=== PATIENT | female | born 1995 | race African-American/Black ===

== ENCOUNTER 2017-03-23 12:15 | Emergency (ER) | payer OTHER ==
[~2017-03-23] VITALS: Ht 160 cm; Wt 54.5 kg
[~2017-03-23 12:15] MED LIST: BIRTH CONTROL PILLS
[2017-03-23 12:17] VITALS: BP 117/66; TEMP 99
[2017-03-23] MEDS ORDERED: CELEXA 20MG20 MG/TAB PO (12:20)
[2017-03-23] MEDS ORDERED: VIENVA-28 TABL1 EACH PO (12:20)
[2017-03-23] MEDS ORDERED: ADDERALL15 MG PO (12:20)
[2017-03-23 15:04] LABS: PH 6 (5-8); URINE APPEARANCE Clear; URINE BACTERIA Rare /hpf; URINE BILIRUBIN Negative (NEGATIVE); URINE BLOOD Negative (NEGATIVE); URINE COLOR Yellow; URINE GLUCOSE Negative (NEGATIVE); URINE KETONE Negative (NEGATIVE); URINE RBC 0-2 /hpf; URINE UROBILINOGEN Negative (NEGATIVE)
[2017-03-23 16:04] LABS: MEAN CELL VOLUME 85 fl (80.0-100.0); MEAN CORPUSCULAR HEMOGLOBIN 28 pg (27.0-31.0); MEAN CORPUSCULAR HGB CONC 33 g/dl (33.0-37.0); MEAN PLATELET VOLUME 10.3 fl (7.4-10.4); PLATELET COUNT 230 K/mm3 (130-400); REDCELL DISTRIBUTION WIDTH-CV 13.3 % (11.5-14.5)
[2017-03-23 16:09] LABS: ADD PATHOLOGY DIFF REVIEW NO; HEMATOCRIT 36.7 % (37.0-47.0)
[2017-03-23 16:23] LABS: ADJUSTED CALCIUM 8.9 mg/dL (8.4-10.2); ALANINE AMINOTRANSFERASE 19 U/L (9-52); ALKALINE PHOSPHATASE 50 U/L (50-136); ANION GAP 8 mmol/L (7-16); BILIRUBIN,TOTAL 0.5 mg/dL (0.0-1.0); BLOOD UREA NITROGEN 8 mg/dL (7-17); CALCIUM 8.9 mg/dL (8.4-10.2); CARBON DIOXIDE 24 mmol/L (22-30); CHLORIDE 105 mmol/L (98-107); CREATININE, serum 0.66 mg/dL (0.52-1.25); GLUCOSE 74 mg/dL (74-106); LIPASE 72 U/L (23-300); POTASSIUM 3.7 mmol/L (3.4-5.0); SODIUM 137 mmol/L (137-145); TOTAL PROTEIN 6.9 gm/dL (6.4-8.2)
[2017-03-23 16:26] LABS: C-REACTIVE PROTEIN < 0.5 mg/dL (0.0-0.9)
[2017-03-23 16:44] LABS: BAND 2 % (0-10); NEUTROPHILS 51 % (42.0-75.2); TOTAL CELLS COUNTED 100
[2017-03-23 16:46] LABS: PLATELET ESTIMATE NORMAL (NORMAL)
[2017-03-23 17:21] VITALS: PULSE 67
== END 2017-03-23 17:21 | disposition home or self-care (01) ==
LOC: COL.ER 12:15
PROVIDERS: Nurse Practitioner
DX: R10.84 Generalized abdominal pain (principal); R19.7 Diarrhea, unspecified; F41.9 Anxiety disorder, unspecified; F90.9 Attention-deficit hyperactivity disorder, unspecified type; F12.10 Cannabis abuse, uncomplicated
CPT/HCPCS: J1885; J7030

== ENCOUNTER → 2017-03-25 | Outpatient (CLI) | payer OTHER ==
[~2017-03-25] MED LIST changes: +ADDERALL15 MG PO; +CELEXA 20MG20 MG/TAB PO; +VIENVA-28 TABL1 EACH PO
== END ==
LOC: COL.LAB 14:55
DX: R19.7 Diarrhea, unspecified (principal)

== ENCOUNTER 2018-02-12 18:32 | Emergency (ER) | payer SELFPAY ==
[~2018-02-12] VITALS: Ht 160 cm; Wt 52.3 kg
[2018-02-12 18:36] VITALS: TEMP 98.7
[2018-02-12 19:36] LABS: COLLECTION METHOD CLEAN CATCH
[2018-02-12 19:39] LABS: BASO % 0.5 % (0.0-2.0); EOS # 0.1 (0.0-0.7); EOS % 0.6 % (0-4.0); GRAN # 4.1 (1.4-6.5); GRAN % 46.5 % (42.2-75.2); HEMATOCRIT 42.1 % (37.0-47.0); LYMPH # 4.1 (1.2-3.4); LYMPH % 45.7 % (20.0-51.0); MEAN CELL VOLUME 84 fl (80.0-100.0); MEAN CORPUSCULAR HEMOGLOBIN 28 pg (27.0-31.0); MEAN CORPUSCULAR HGB CONC 33 g/dl (33.0-37.0); MEAN PLATELET VOLUME 10.4 fl (7.4-10.4); MONO # 0.6 (0.1-0.6); MONO % 6.5 % (1.7-9.3); PLATELET COUNT 238 K/mm3 (130-400); REDCELL DISTRIBUTION WIDTH-CV 13.2 % (11.5-14.5)
[2018-02-12 19:43] LABS: MUCOUS Present /lpf; PH 7 (5-8); SQUAMOUS EPITHELIAL 0-2 /hpf; URINE APPEARANCE Cloudy; URINE BACTERIA None Seen /hpf; URINE BILIRUBIN Negative (NEGATIVE); URINE BLOOD Negative (NEGATIVE); URINE COLOR Amber; URINE GLUCOSE Negative (NEGATIVE); URINE KETONE Negative (NEGATIVE); URINE LEUKOCYTE ESTERASE Negative (NEGATIVE); URINE NITRATE Negative (NEGATIVE); URINE PROTEIN(semi-quant) Negative (NEGATIVE); URINE RBC 0-2 /hpf; URINE UROBILINOGEN Negative (NEGATIVE)
[2018-02-12 19:51] LABS: ALANINE AMINOTRANSFERASE 24 U/L (9-52); ALBUMIN 4.9 gm/dL (3.5-5.0); ALKALINE PHOSPHATASE 63 U/L (50-136); ANION GAP 16 mmol/L (7-16); AST,SGOT 27 U/L (15-37); BILIRUBIN,TOTAL 0.5 mg/dL (0.0-1.0); BLOOD UREA NITROGEN 12 mg/dL (7-17); CALCIUM 9.7 mg/dL (8.4-10.2); CARBON DIOXIDE 25 mmol/L (22-30); CHLORIDE 102 mmol/L (98-107); CREATININE, serum 0.65 mg/dL (0.52-1.25); GLUCOSE 90 mg/dL (74-106); POTASSIUM 3.9 mmol/L (3.4-5.0); SODIUM 142 mmol/L (137-145); TOTAL PROTEIN 9.1 gm/dL (6.4-8.2)
[2018-02-12 19:52] LABS: C-REACTIVE PROTEIN < 0.5 mg/dL (0.0-0.9)
[2018-02-12] MEDS ORDERED: ULTRAM 50MG TAB50 MG PO (20:53)
[2018-02-12 21:23] VITALS: BP 110/71; PULSE 76
== END 2018-02-12 21:30 | disposition home or self-care (01) ==
LOC: COL.ER 18:32
PROVIDERS: Nurse Practitioner
DX: R10.84 Generalized abdominal pain (principal); K21.9 Gastro-esophageal reflux disease without esophagitis; F31.9 Bipolar disorder, unspecified; F12.90 Cannabis use, unspecified, uncomplicated; Z88.0 Allergy status to penicillin
CPT/HCPCS: J1885; J2405; J7030; Q9967